=== PATIENT | male | born 1945 | race Caucasian/White ===

== ENCOUNTER 2021-12-21 10:26 | Inpatient (IN) | payer OTHER ==
[2021-12-21 11:52] LABS: BASO % 0.8 % (0-2.0); EOS % 5.5 % (0-4.5); HEMATOCRIT 34.6 % (35.4-49); HEMOGLOBIN 11.6 GM/dL (11.7-16.9); LYMPH % 22.2 % (8-40); MCH 28.8 pg (25.7-33.7); MCHC 33.7 g/dl (32.0-35.9); MEAN CELL VOLUME 85.4 fl (80-96); MEAN PLT VOLUME 6.8 fl (7.5-11.1); MONO % 13.1 % (3.8-10.2); NEUT % 58.4 % (42.8-82.8); PLATELET COUNT 194 10^3/uL (134-434); RBC 4.05 M/mm3 (4.00-5.60); RDW 16.8 % (11.9-15.9); WHITE BLOOD COUNT 5.3 K/mm3 (4.0-10.0)
[2021-12-21 11:59] LABS: INR 3.61 (0.83-1.09)
[2021-12-21 12:02] LABS: ACTIVATED PTT 51.4 SECONDS (25.2-36.5)
[2021-12-21 12:05] LABS: ALBUMIN 3.1 g/dl (3.4-5.0); CALCIUM 8.6 mg/dL (8.5-10.1)
[2021-12-21 12:09] LABS: CREATININE 0.8 mg/dL (0.55-1.3)
[2021-12-21 12:10] LABS: BILIRUBIN,TOTAL 1.6 mg/dL (0.2-1); TOT PROT 7.1 g/dl (6.4-8.2)
[2021-12-22 03:28] VITALS: BMI 33.2
[2021-12-22 08:36] LABS: BASO % 0.7 % (0-2.0); EOS % 4.6 % (0-4.5); HEMATOCRIT 38.2 % (35.4-49); HEMOGLOBIN 12.4 GM/dL (11.7-16.9); LYMPH % 19.9 % (8-40); MCH 27.7 pg (25.7-33.7); MCHC 32.3 g/dl (32.0-35.9); MEAN CELL VOLUME 85.6 fl (80-96); MEAN PLT VOLUME 7.3 fl (7.5-11.1); MONO % 12.5 % (3.8-10.2); NEUT % 62.3 % (42.8-82.8); PLATELET COUNT 226 10^3/uL (134-434); RBC 4.47 M/mm3 (4.00-5.60); RDW 16.9 % (11.9-15.9); WHITE BLOOD COUNT 6.9 K/mm3 (4.0-10.0)
[2021-12-22 08:44] LABS: INR 2.41 (0.83-1.09)
[2021-12-22 08:55] LABS: BLOOD UREA NITROGEN 9.3 mg/dL (7-18)
[2021-12-22 08:56] LABS: ALBUMIN 3.1 g/dl (3.4-5.0)
[2021-12-22 08:59] LABS: CREATININE 0.7 mg/dL (0.55-1.3)
[2021-12-22 09:03] LABS: BILIRUBIN,TOTAL 2.4 mg/dL (0.2-1); TOT PROT 7.2 g/dl (6.4-8.2)
[2021-12-22] MEDS: RAMIPRIL 5 MG CAPSULE PO SCH (09:46)
[2021-12-22] MEDS: amLODIPine BESYLATE 5 MG TABLET (FP) PO SCH (09:46)
[2021-12-22] MEDS: CARVEDILOL 25 MG TABLET (FP) PO SCH ×2 (11:13→21:04)
[2021-12-22] MEDS: guaiFENesin/CODEINE 5 ML UNIT-DOSE CUPS PO PRN (13:13)
[2021-12-22] MEDS ORDERED: WARFARIN NA 3 MG TABLET PO SCH (18:00)
[2021-12-22] MEDS: MONTELUKAST NA 10 MG TABLET PO SCH (21:04)
[2021-12-22] MEDS: ATORVASTATIN CA 10 MG TABLET (FP) PO SCH (21:04)
[2021-12-23] MEDS: guaiFENesin/CODEINE 5 ML UNIT-DOSE CUPS PO PRN ×3 (01:44→20:29)
[2021-12-23] MEDS: FUROSEMIDE 40 MG TABLET (FP) PO SCH (09:42)
[2021-12-23] MEDS: amLODIPine BESYLATE 5 MG TABLET (FP) PO SCH (09:42)
[2021-12-23] MEDS: RAMIPRIL 5 MG CAPSULE PO SCH (09:42)
[2021-12-23] MEDS: CARVEDILOL 25 MG TABLET (FP) PO SCH ×2 (09:42→21:01)
[2021-12-23 10:15] LABS: INR 1.83 (0.83-1.09); PROTHROMBIN TIME (PATIENT) 21.2 SEC (9.7-13.0)
[2021-12-23 10:17] LABS: BASO % 0.6 % (0-2.0); HEMATOCRIT 40.5 % (35.4-49); HEMOGLOBIN 13.2 GM/dL (11.7-16.9); LYMPH % 16.1 % (8-40); MCHC 32.6 g/dl (32.0-35.9); MEAN CELL VOLUME 85.8 fl (80-96); MEAN PLT VOLUME 7.7 fl (7.5-11.1); MONO % 11.2 % (3.8-10.2); NEUT % 67.1 % (42.8-82.8); PLATELET COUNT 234 10^3/uL (134-434); RBC 4.72 M/mm3 (4.00-5.60); RDW 16.7 % (11.9-15.9); WHITE BLOOD COUNT 8.5 K/mm3 (4.0-10.0)
[2021-12-23 10:30] LABS: CALCIUM 8.5 mg/dL (8.5-10.1)
[2021-12-23 10:31] LABS: ALBUMIN 3.1 g/dl (3.4-5.0); BLOOD UREA NITROGEN 12.6 mg/dL (7-18)
[2021-12-23 10:34] LABS: CREATININE 0.7 mg/dL (0.55-1.3)
[2021-12-23 10:35] LABS: BILIRUBIN,TOTAL 2.8 mg/dL (0.2-1); TOT PROT 7.5 g/dl (6.4-8.2)
[2021-12-23] MEDS ORDERED: WARFARIN NA 5 MG TABLET PO SCH (18:00)
[2021-12-23] MEDS: MONTELUKAST NA 10 MG TABLET PO SCH (21:00)
[2021-12-23] MEDS: ATORVASTATIN CA 10 MG TABLET (FP) PO SCH (21:00)
[2021-12-24] MEDS: guaiFENesin/CODEINE 5 ML UNIT-DOSE CUPS PO PRN ×2 (07:47→18:50)
[2021-12-24 07:58] LABS: INR 1.86 (0.83-1.09); PROTHROMBIN TIME (PATIENT) 21.5 SEC (9.7-13.0)
[2021-12-24] MEDS: RAMIPRIL 5 MG CAPSULE PO SCH (09:29)
[2021-12-24] MEDS: amLODIPine BESYLATE 5 MG TABLET (FP) PO SCH (09:29)
[2021-12-24] MEDS: CARVEDILOL 25 MG TABLET (FP) PO SCH ×2 (09:29→21:19)
[2021-12-24] MEDS: FUROSEMIDE 40 MG TABLET (FP) PO SCH (09:29)
[2021-12-24] MEDS: ALBUTEROL SO4 2.5/IPRATROPIUM 0.5 INH SOL 3 ML VIAL.NEB. NEB SCH ×5 (11:06→23:56)
[2021-12-24] MEDS ORDERED: WARFARIN NA 7.5 MG TABLET PO SCH (18:00)
[2021-12-24] MEDS: ATORVASTATIN CA 10 MG TABLET (FP) PO SCH (21:19)
[2021-12-24] MEDS: MONTELUKAST NA 10 MG TABLET PO SCH (21:19)
[2021-12-24] MEDS: BENZOCAINE/MENTHOL 1 EACH LOZENGE MM PRN (21:19)
[2021-12-25] MEDS: guaiFENesin/CODEINE 5 ML UNIT-DOSE CUPS PO PRN ×2 (02:36→08:37)
[2021-12-25] MEDS: ALBUTEROL SO4 2.5/IPRATROPIUM 0.5 INH SOL 3 ML VIAL.NEB. NEB SCH ×5 (04:05→20:05)
[2021-12-25 09:01] LABS: INR 2.23 (0.83-1.09); PROTHROMBIN TIME (PATIENT) 25.8 SEC (9.7-13.0)
[2021-12-25 09:07] LABS: BASO % 0.5 % (0-2.0); EOS % 3.6 % (0-4.5); HEMATOCRIT 36.6 % (35.4-49); LYMPH % 17.1 % (8-40); MCH 28.1 pg (25.7-33.7); MCHC 32.8 g/dl (32.0-35.9); MEAN CELL VOLUME 85.8 fl (80-96); MEAN PLT VOLUME 8.1 fl (7.5-11.1); MONO % 14.3 % (3.8-10.2); NEUT % 64.5 % (42.8-82.8); PLATELET COUNT 249 10^3/uL (134-434); RBC 4.27 M/mm3 (4.00-5.60); RDW 16.8 % (11.9-15.9); WHITE BLOOD COUNT 7.6 K/mm3 (4.0-10.0)
[2021-12-25 09:18] LABS: CALCIUM 8.4 mg/dL (8.5-10.1)
[2021-12-25 09:19] LABS: BLOOD UREA NITROGEN 12.6 mg/dL (7-18)
[2021-12-25 09:22] LABS: CREATININE 0.7 mg/dL (0.55-1.3)
[2021-12-25 09:23] LABS: BILIRUBIN,TOTAL 1.7 mg/dL (0.2-1); TOT PROT 6.8 g/dl (6.4-8.2)
[2021-12-25] MEDS: RAMIPRIL 5 MG CAPSULE PO SCH (10:53)
[2021-12-25] MEDS: FUROSEMIDE 40 MG TABLET (FP) PO SCH (10:54)
[2021-12-25] MEDS: CARVEDILOL 25 MG TABLET (FP) PO SCH ×2 (10:54→21:10)
[2021-12-25] MEDS: amLODIPine BESYLATE 5 MG TABLET (FP) PO SCH (10:54)
[2021-12-25] MEDS ORDERED: ACETAMINOPHEN 325 MG TABLET (FP) PO PRN (14:33)
[2021-12-25] MEDS: WARFARIN NA 2 MG TABLET PO SCH (17:15)
[2021-12-25] MEDS: ATORVASTATIN CA 10 MG TABLET (FP) PO SCH (21:10)
[2021-12-25] MEDS: MONTELUKAST NA 10 MG TABLET PO SCH (21:10)
[2021-12-26] MEDS: ALBUTEROL SO4 2.5/IPRATROPIUM 0.5 INH SOL 3 ML VIAL.NEB. NEB SCH ×6 (04:00→20:13)
[2021-12-26] MEDS: amLODIPine BESYLATE 5 MG TABLET (FP) PO SCH (10:18)
[2021-12-26] MEDS: RAMIPRIL 5 MG CAPSULE PO SCH (10:18)
[2021-12-26] MEDS: CARVEDILOL 25 MG TABLET (FP) PO SCH ×2 (10:18→21:15)
[2021-12-26] MEDS: FUROSEMIDE 40 MG TABLET (FP) PO SCH (10:19)
[2021-12-26] MEDS: WARFARIN NA 2 MG TABLET PO SCH (18:44)
[2021-12-26] MEDS: ATORVASTATIN CA 10 MG TABLET (FP) PO SCH (21:15)
[2021-12-26] MEDS: BENZOCAINE/MENTHOL 1 EACH LOZENGE MM PRN (21:15)
[2021-12-26] MEDS: MONTELUKAST NA 10 MG TABLET PO SCH (21:15)
[2021-12-27] MEDS: ALBUTEROL SO4 2.5/IPRATROPIUM 0.5 INH SOL 3 ML VIAL.NEB. NEB SCH ×4 (00:45→11:28)
[2021-12-27 10:18] LABS: INR 2.86 (0.83-1.09); PROTHROMBIN TIME (PATIENT) 33.2 SEC (9.7-13.0)
[2021-12-27] MEDS: FUROSEMIDE 40 MG TABLET (FP) PO SCH (10:26)
[2021-12-27] MEDS: CARVEDILOL 25 MG TABLET (FP) PO SCH (10:26)
[2021-12-27] MEDS: RAMIPRIL 5 MG CAPSULE PO SCH (10:26)
[2021-12-27] MEDS: amLODIPine BESYLATE 5 MG TABLET (FP) PO SCH (10:26)
[2021-12-27 13:39] VITALS: BP 133/68; PULSE 93; RESP 20; TEMP 99.4
== END 2021-12-27 14:15 | disposition home or self-care (01) | DRG 813 ==
LOC: JER 10:26 → JERBED 16:15 → J4S 12-22 02:42
PROVIDERS: ADMIT Internal Medicine; ATTEND Internal Medicine
DX: D68.32 Hemorrhagic disorder due to extrinsic circulating anticoagulants (principal); I50.33 Acute on chronic diastolic (congestive) heart failure; R04.2 Hemoptysis; I48.91 Unspecified atrial fibrillation; J45.20 Mild intermittent asthma, uncomplicated; D64.9 Anemia, unspecified; E78.5 Hyperlipidemia, unspecified; R41.3 Other amnesia; E66.9 Obesity, unspecified; Z68.33 Body mass index [BMI] 33.0-33.9, adult; I11.0 Hypertensive heart disease with heart failure
CPT/HCPCS: 0241U-QW; 36415; 70450-TC; 71275-TC; 80053; 83036; 83880; 84443; 84484; 85025; 85610; 85730; 86850; 86900; 86901; 93005; 93010; 93306-TC; 94640; 99285-25

== ENCOUNTER 2024-06-22 09:38 | Inpatient (IN) | payer OTHER ==
[2024-06-22] MEDS ORDERED: ACETAMINOPHEN 325 MG TABLET (FP) ONE (12:15)
[2024-06-22] MEDS ORDERED: VANCOMYCIN/WATER 1250 MG 1,250 MG/250 ML BAG IVPB ONE (12:16)
[2024-06-22 12:19] LABS: BASO % 0.9 % (0-2.0); EOS % 3.2 % (0-4.5); HEMATOCRIT 33.7 % (35.4-49); HEMOGLOBIN 11.1 GM/dL (11.7-16.9); LYMPH % 7.5 % (8-40); MCH 26.9 pg (25.7-33.7); MEAN CELL VOLUME 81.4 fl (80-96); MONO % 10.3 % (3.8-10.2); NEUT % 78.1 % (42.8-82.8); PLATELET COUNT 259 10^3/uL (134-434); RBC 4.14 M/mm3 (4.00-5.60); RDW 17.1 % (11.9-15.9); WHITE BLOOD COUNT 8.9 K/mm3 (4.0-10.0)
[2024-06-22] MEDS: ACETAMINOPHEN 500 MG TABLET (FP) PO ONE (12:28)
[2024-06-22] MEDS: VANCOMYCIN/WATER 1250 MG 1,250 MG/250 ML BAG IVPB ONE (12:29)
[2024-06-22 12:45] LABS: CHLORIDE 92 mmol/L (98-107); SODIUM 124 mmol/L (136-145)
[2024-06-22 12:47] LABS: CALCIUM 8.4 mg/dL (8.5-10.1); POTASSIUM 6.5 mmol/L (3.5-5.1)
[2024-06-22 12:48] LABS: ALBUMIN 2.8 g/dl (3.4-5.0); ANION GAP 8 mmol/L (4-13); BLOOD UREA NITROGEN 57.2 mg/dL (7-18); CO2 23 mmol/L (21-32); GLUCOSE,RANDOM 107 mg/dL (74-106)
[2024-06-22 12:51] LABS: CREATININE 1.3 mg/dL (0.55-1.3); SGOT/AST 15 U/L (15-37); SGPT/ALT 12 U/L (13-61)
[2024-06-22 12:52] LABS: TOT PROT 7.7 g/dl (6.4-8.2)
[2024-06-22 12:54] LABS: ALK PHOS 172 U/L (45-117)
[2024-06-22] MEDS ORDERED: CALCIUM GLUC IN NACL, ISO-OSM 1 GM/50 ML BAG IVPB ONE (13:18)
[2024-06-22] MEDS ORDERED: DEXTROSE 50%-WATER 25 GM/50 ML DISP.SYRIN ONE (13:19)
[2024-06-22] MEDS ORDERED: INSULIN REGULAR HUMAN 100 UNITS/ML *VIAL ONE (13:20)
[2024-06-22] MEDS: SODIUM CHLORIDE 0.9% 500 ML INFUS.BAG IV ONE (13:41)
[2024-06-22] MEDS: CALCIUM GLUCONATE 10% - 1,000 MG/10 ML VIAL IVPUSH ONE (13:42)
[2024-06-22] MEDS: DEXTROSE 50%-WATER 25 GM/50 ML DISP.SYRIN IVPUSH ONE ×2 (13:42)
[2024-06-22] MEDS: INSULIN REGULAR HUMAN 100 UNITS/ML *VIAL IVPUSH ONE (13:42)
[2024-06-22 15:29] LABS: POTASSIUM 5.2 mmol/L (3.5-5.1)
[2024-06-22 15:32] LABS: ALBUMIN 2.6 g/dl (3.4-5.0); BLOOD UREA NITROGEN 50.9 mg/dL (7-18); CALCIUM 8.6 mg/dL (8.5-10.1)
[2024-06-22 15:35] LABS: CREATININE 1.3 mg/dL (0.55-1.3)
[2024-06-22 15:37] LABS: TOT PROT 7.1 g/dl (6.4-8.2)
[2024-06-22 22:10] LABS: INR 1.81 (0.83-1.09); PROTHROMBIN TIME (PATIENT) 19.9 SEC (9.7-13.0)
[2024-06-22] MEDS: CARVEDILOL 25 MG TABLET (FP) PO SCH (22:30)
[2024-06-22] MEDS: MONTELUKAST NA 10 MG TABLET PO SCH (22:30)
[2024-06-22] MEDS: ATORVASTATIN CA 10 MG TABLET (FP) PO SCH (22:30)
[2024-06-22] MEDS: HEPARIN NA (PORCINE) 5,000 UNITS/ML 1ML VIAL SQ SCH (22:31)
[2024-06-22] MEDS: ACETAMINOPHEN 1000 MG/100 ML BAG IVPB ONE (22:31)
[2024-06-23] MEDS: APIXABAN 5 MG TABLET PO SCH (00:18)
[2024-06-23 00:34] VITALS: BMI 33.0
[2024-06-23] MEDS ORDERED: diphenhydrAMINE HCL 25 MG CAPSULE (FP) PO PRN (02:58)
[2024-06-23] MEDS: LEVOTHYROXINE NA 25 MCG TABLET (FP) PO SCH (06:09)
[2024-06-23] MEDS: ACETAMINOPHEN 1000 MG/100 ML BAG IVPB ONE (07:00)
[2024-06-23 09:17] LABS: EOS % 4.6 % (0-4.5); HEMATOCRIT 31.8 % (35.4-49); HEMOGLOBIN 10.6 GM/dL (11.7-16.9); LYMPH % 10.9 % (8-40); MCH 26.8 pg (25.7-33.7); MCHC 33.4 g/dl (32.0-35.9); MEAN CELL VOLUME 80.3 fl (80-96); MEAN PLT VOLUME 7.2 fl (7.5-11.1); MONO % 14.9 % (3.8-10.2); NEUT % 68.6 % (42.8-82.8); PLATELET COUNT 213 10^3/uL (134-434); RBC 3.96 M/mm3 (4.00-5.60); RDW 17.6 % (11.9-15.9)
[2024-06-23 09:40] LABS: POTASSIUM 5.6 mmol/L (3.5-5.1)
[2024-06-23] MEDS: FUROSEMIDE 40 MG TABLET (FP) PO SCH (09:48)
[2024-06-23 09:49] LABS: CALCIUM 8.6 mg/dL (8.5-10.1)
[2024-06-23] MEDS: amLODIPine BESYLATE 5 MG TABLET (FP) PO SCH (09:49)
[2024-06-23 09:50] LABS: ALBUMIN 2.5 g/dl (3.4-5.0); MAGNESIUM 1.9 mg/dL (1.8-2.4)
[2024-06-23 09:51] LABS: BLOOD UREA NITROGEN 48.8 mg/dL (7-18)
[2024-06-23 09:53] LABS: CREATININE 1.1 mg/dL (0.55-1.3)
[2024-06-23 09:54] LABS: BILIRUBIN,TOTAL 0.8 mg/dL (0.2-1); TOT PROT 6.7 g/dl (6.4-8.2)
[2024-06-23] MEDS ORDERED: ACETAMINOPHEN 1000 MG/100 ML BAG IVPB PRN (12:34)
[2024-06-23] MEDS: oxyCODONE HCL 5 MG TABLET PO PRN (13:35)
[2024-06-23] MEDS: SODIUM ZIRCONIUM CYCLOSILICATE (LOKELMA) 5 GM PACKET PO SCH (16:05)
[2024-06-23] MEDS: DOXYCYCLINE HYCLATE 100 MG CAPSULE PO SCH (17:33)
[2024-06-23] MEDS ORDERED: WARFARIN NA 2 MG TABLET PO SCH (18:00)
[2024-06-24 09:18] LABS: EOS % 4.9 % (0-4.5); HEMATOCRIT 33.1 % (35.4-49); HEMOGLOBIN 10.8 GM/dL (11.7-16.9); LYMPH % 13.9 % (8-40); MCH 26.8 pg (25.7-33.7); MCHC 32.7 g/dl (32.0-35.9); MONO % 13.9 % (3.8-10.2); NEUT % 66.3 % (42.8-82.8); PLATELET COUNT 232 10^3/uL (134-434); RBC 4.04 M/mm3 (4.00-5.60); RDW 17.8 % (11.9-15.9); WHITE BLOOD COUNT 6.7 K/mm3 (4.0-10.0)
[2024-06-24 09:39] LABS: POTASSIUM 5.1 mmol/L (3.5-5.1)
[2024-06-24 09:43] LABS: ALBUMIN 2.4 g/dl (3.4-5.0); BLOOD UREA NITROGEN 44.6 mg/dL (7-18); CALCIUM 8.6 mg/dL (8.5-10.1)
[2024-06-24] MEDS: FUROSEMIDE 40 MG/4 ML INJECTABLE VIAL IVPUSH SCH (09:46)
[2024-06-24 09:47] LABS: CREATININE 1.1 mg/dL (0.55-1.3)
[2024-06-24 09:48] LABS: TOT PROT 6.8 g/dl (6.4-8.2)
[2024-06-24] MEDS: EMPAGLIFLOZIN (JARDIANCE) 25 MG TABLET PO SCH (19:46)
[2024-06-24] MEDS: guaiFENesin/D-METHORPHAN HB 10 ML UNIT-DOSE CUPS PO ONE ×2 (22:03→23:21)
[2024-06-25] MEDS: LEVOTHYROXINE NA 25 MCG TABLET (FP) PO SCH (06:21)
[2024-06-25 10:05] LABS: BASO % 0.9 % (0-2.0); EOS % 6.2 % (0-4.5); HEMATOCRIT 33.4 % (35.4-49); HEMOGLOBIN 11.5 GM/dL (11.7-16.9); LYMPH % 16.4 % (8-40); MCH 27.8 pg (25.7-33.7); MCHC 34.3 g/dl (32.0-35.9); MEAN CELL VOLUME 80.8 fl (80-96); MEAN PLT VOLUME 6.8 fl (7.5-11.1); NEUT % 61.5 % (42.8-82.8); PLATELET COUNT 270 10^3/uL (134-434); RBC 4.13 M/mm3 (4.00-5.60); RDW 17.8 % (11.9-15.9); WHITE BLOOD COUNT 8.6 K/mm3 (4.0-10.0)
[2024-06-25 10:26] LABS: POTASSIUM 4.8 mmol/L (3.5-5.1)
[2024-06-25 10:32] LABS: CALCIUM 8.6 mg/dL (8.5-10.1)
[2024-06-25 10:33] LABS: ALBUMIN 2.5 g/dl (3.4-5.0); BLOOD UREA NITROGEN 47.9 mg/dL (7-18)
[2024-06-25 10:36] LABS: CREATININE 1.4 mg/dL (0.55-1.3)
[2024-06-25 10:38] LABS: BILIRUBIN,TOTAL 0.8 mg/dL (0.2-1); TOT PROT 7.1 g/dl (6.4-8.2)
[2024-06-25] MEDS: oxyCODONE HCL 5 MG TABLET PO PRN (12:21)
[2024-06-25] MEDS: VANCOMYCIN HCL 125 MG CAPSULE (RESTRICTED TO ID ONLY) PO SCH (13:00)
[2024-06-25] MEDS: MAG HYDROX/AL HYDROX/SIMETH 30 ML UNIT-DOSE CUP PO ONE (22:01)
[2024-06-26] MEDS: EMPAGLIFLOZIN (JARDIANCE) 25 MG TABLET PO SCH (06:05)
[2024-06-26] MEDS: PANTOPRAZOLE 40 MG TABLET PO SCH (09:45)
[2024-06-26] MEDS ORDERED: SODIUM CHLORIDE NASAL SPRAY 44 ML BOTTLE NS PRN (10:30)
[2024-06-26] MEDS: FLUTICASONE PROP 0.05% 16 GM NASAL SPRAY NS SCH (11:00)
[2024-06-26] MEDS: guaiFENesin 600 MG TABLET.ER (FP) PO SCH (11:00)
[2024-06-26] MEDS ORDERED: ONDANSETRON *ODT* 4 MG TABLET SL PRN (11:13)
[2024-06-26] MEDS: ALBUTEROL SO4 2.5/IPRATROPIUM 0.5 INH SOL 3 ML VIAL.NEB. NEB SCH (11:15)
[2024-06-27] MEDS: MINERAL OIL/PET HY-PHL TOPICAL OINTMENT 454 GM JAR TP SCH (11:55)
[2024-06-27] MEDS: hydrOXYzine PAMOATE 25 MG CAPSULE (FP) PO PRN (15:20)
[2024-06-27] MEDS ORDERED: SIMETHICONE 80 MG TAB.CHEW (FP) PO PRN (20:37)
[2024-06-28 08:38] LABS: BASO % 1.2 % (0-2.0); EOS % 8.9 % (0-4.5); HEMATOCRIT 33.9 % (35.4-49); LYMPH % 17.6 % (8-40); MCH 26.3 pg (25.7-33.7); MCHC 32.4 g/dl (32.0-35.9); MEAN CELL VOLUME 81.2 fl (80-96); MEAN PLT VOLUME 7.3 fl (7.5-11.1); MONO % 13.3 % (3.8-10.2); PLATELET COUNT 268 10^3/uL (134-434); RBC 4.18 M/mm3 (4.00-5.60); RDW 17.7 % (11.9-15.9); WHITE BLOOD COUNT 7.6 K/mm3 (4.0-10.0)
[2024-06-28 08:54] LABS: POTASSIUM 3.7 mmol/L (3.5-5.1)
[2024-06-28 08:55] LABS: ALBUMIN 2.3 g/dl (3.4-5.0); BLOOD UREA NITROGEN 46.9 mg/dL (7-18)
[2024-06-28 09:01] LABS: TOT PROT 6.4 g/dl (6.4-8.2)
[2024-06-28 09:07] LABS: CREATININE 1.3 mg/dL (0.55-1.3)
[2024-06-28] MEDS: FUROSEMIDE 40 MG TABLET (FP) PO SCH (10:02)
[2024-06-28] MEDS: COLCHICINE 0.6 MG TAB PO SCH (21:00)
[2024-06-28 21:14] VITALS: RESP 18
[2024-06-29] MEDS: ACETAMINOPHEN 325 MG TABLET (FP) PO PRN (06:23)
[2024-06-29 08:01] LABS: POTASSIUM 3.9 mmol/L (3.5-5.1)
[2024-06-29 08:33] LABS: CALCIUM 8.4 mg/dL (8.5-10.1)
[2024-06-29 08:34] LABS: ALBUMIN 2.4 g/dl (3.4-5.0); BLOOD UREA NITROGEN 51.6 mg/dL (7-18)
[2024-06-29 08:37] LABS: CREATININE 1.4 mg/dL (0.55-1.3)
[2024-06-29 08:38] LABS: BILIRUBIN,TOTAL 1.1 mg/dL (0.2-1)
[2024-06-29 08:39] LABS: TOT PROT 6.9 g/dl (6.4-8.2)
[2024-06-29 12:23] VITALS: BP 97/50; PULSE 90; TEMP 98.6
== END 2024-06-29 11:46 | disposition home health service (06) | DRG 602 ==
LOC: JER 09:38 → JERBED 12:20 → J8W 20:17
PROVIDERS: ADMIT Family Medicine; ATTEND Internal Medicine
DX: L03.116 Cellulitis of left lower limb (principal); I50.33 Acute on chronic diastolic (congestive) heart failure; E87.1 Hypo-osmolality and hyponatremia; I11.0 Hypertensive heart disease with heart failure; I48.91 Unspecified atrial fibrillation; E78.5 Hyperlipidemia, unspecified; E87.5 Hyperkalemia; I89.0 Lymphedema, not elsewhere classified; M34.9 Systemic sclerosis, unspecified; B35.1 Tinea unguium; L85.3 Xerosis cutis; E03.9 Hypothyroidism, unspecified; M10.9 Gout, unspecified
CPT/HCPCS: 0241U-QW; 36415; 71045-TC-FY; 73630-TC-LT; 76705-TC; 80053; 82962; 83036; 83735; 83880; 84443; 84550; 85025; 85610; 85651; 86140; 93005; 93010; 93306-TC; 94640; 97116-GP; 97161-GP; 99291; G0463-25; J0131; J1644